=== PATIENT | female | born 1990 | race Two or more races ===

== ENCOUNTER 2025-04-28 07:51 | Day surgery (SDC) | payer OTHER ==
[2025-04-27 11:50] LABS: BASO % 0.3 % (0.1-1.2); EOS # 0.04 (0.04-0.54); EOS % 0.6 % (0.7-7.0); HEMATOCRIT 36.1 % (34.1-44.9); HEMOGLOBIN 12.2 g/dL (11.2-15.7); LYMPH # 1.56 (1.18-3.74); LYMPH % 24.8 % (19.3-53.1); MEAN CORPUSCULAR HEMOGLOBIN 30.7 pg (25.6-32.2); MONO # 0.41 (0.24-0.82); MONO % 6.5 % (4.7-12.5); NEUT # 4.23 (1.56-6.13); NEUT % 67.5 % (34.0-71.1); PLATELET COUNT 329 K/uL (163-369); RED BLOOD COUNT 3.98 M/uL (3.93-5.22); RED CELL DISTRIBUTION WIDTH 12.9 % (11.6-14.4)
[2025-04-27 12:17] LABS: PROTHROMBIN TIME 10.9 SECONDS (9.0-11.5)
[2025-04-27 12:33] LABS: ALBUMIN 3.9 gm/dL (3.4-5.0); BILIRUBIN TOTAL 0.52 mg/dL (0.3-1.2); CALCIUM 9.4 mg/dL (8.5-10.1); CREATININE SERUM 0.56 mg/dL (0.55-1.02); GFR 123.19; GLOBULINA 3.4 G/DL (2.4-3.5); POTASSIUM 4.48 mEq/L (3.5-5.1); TOTAL PROTEIN 7.3 gm/dL (6.4-8.2)
[2025-04-27 15:18] LABS: RH POSITIVE
[2025-04-28] MEDS ORDERED: CEFAZOLIN SODIUM 1,000 MG VIAL ONE (09:45)
[2025-04-28] MEDS ORDERED: MORPHINE SULFATE 4 MG/ML VIAL IV PRN (14:30)
[2025-04-28] MEDS ORDERED: PROMETHAZINE HCL 50 MG/ML AMPUL IM ONE (14:30)
[2025-04-28] MEDS ORDERED: CEFAZOLIN SODIUM 1,000 MG VIAL IV ONE (19:30)
== END 2025-04-28 18:10 | disposition home or self-care (01) ==
LOC: CIR.AMB 07:51
PROVIDERS: ATTEND Obstetrics & Gynecology
DX: O02.1 Missed abortion (principal)